=== PATIENT | male | born 1945 | race Caucasian/White ===

== ENCOUNTER 2021-08-07 06:58 | Day surgery (SDC) | payer OTHER ==
[~2021-08-07] VITALS: Ht 160 cm; Wt 50.0 kg
[~2021-08-07 06:58] MED LIST: SODIUM CHLORIDE 0.9% 1,000 ML IV ONE; SODIUM CHLORIDE 0.9% 1,000 ML ONE
[2021-08-07] MEDS ORDERED: BENZOCAINE 20% 50 MCG/SPRAY 57 GM TP ONE (06:59)
[2021-08-07] MEDS ORDERED: ALBUTEROL SULFATE 2.5 MG/0.5 ML NEB SOLUTION NEB ONE (06:59)
[2021-08-07] MEDS ORDERED: LIDOCAINE 2% 30 ML JELLY TP ONE (06:59)
[2021-08-07] MEDS ORDERED: FentaNYL CITRATE PF 100 MCG/2 ML VIAL ONE (07:32)
[2021-08-07] MEDS ORDERED: MIDAZOLAM HCL 5 MG/ML VIAL ONE (07:32)
[2021-08-07 07:42] LABS: COVID AG,FIA SOURCE NASOPHARYNGEAL
[2021-08-07] MEDS ORDERED: D-ME473S53 PO (07:57)
[2021-08-07] MEDS ORDERED: LOSA100T58 PO (07:57)
[2021-08-07] MEDS ORDERED: PRED10 PO (07:57)
[2021-08-07] MEDS ORDERED: LIPA1CAP18 PO (07:57)
[2021-08-07] MEDS ORDERED: MONT10TA32 PO (07:57)
[2021-08-07] MEDS ORDERED: PREG75CA75 PO (07:57)
[2021-08-07] MEDS ORDERED: FLUT16H NASAL (07:57)
[2021-08-07] MEDS ORDERED: TRAM50TA4 PO (07:57)
[2021-08-07] MEDS ORDERED: LINA145C PO (07:57)
[2021-08-07] MEDS ORDERED: DULO30CA89 PO (07:57)
[2021-08-07] MEDS ORDERED: FAMO40TA7 PO (07:57)
[2021-08-07] MEDS ORDERED: ALBU6.7H9 IH (07:57)
[2021-08-07] MEDS ORDERED: FLUT220HFA IH (07:57)
[2021-08-07] MEDS ORDERED: NALO25TA4 PO (07:57)
[2021-08-07] MEDS ORDERED: MethylPREDNISolone SOD SUCC 125 MG/2 ML VIAL IVP ONE (09:15)
[2021-08-07] MEDS ORDERED: MethylPREDNISolone SOD SUCC 125 MG/2 ML VIAL ONE (09:54)
[2021-08-07] MEDS ORDERED: OXYGEN THERAPY IH SCH (20:00)
== END 2021-08-07 12:05 | disposition home or self-care (01) ==
LOC: SURGERY 06:58
PROVIDERS: ATTEND Internal Medicine Critical Care Medicine
DX: J38.4 Edema of larynx (principal); B37.0 Candidal stomatitis; F17.210 Nicotine dependence, cigarettes, uncomplicated; I10 Essential (primary) hypertension; J44.9 Chronic obstructive pulmonary disease, unspecified; Z98.41 Cataract extraction status, right eye; Z79.899 Other long term (current) drug therapy; Z88.8 Allergy status to other drugs, medicaments and biological substances; Z98.890 Other specified postprocedural states
CPT/HCPCS: 31623; 31624; 71045; 87015; 87070; 87077; 87101; 87186; 87205; 87206; 87220; 87426; 88112; 88184; 88185; 88312; C9803; J2250; J2930; J3010; J7030; J7613